=== PATIENT | male | born 1980 | race Caucasian/White ===

== ENCOUNTER 2022-04-21 14:58 | Emergency (ER) | payer OTHER ==
[2022-04-21] MEDS ORDERED: Ondansetron ODT 4 MG TAB ONE (15:08)
[2022-04-21] MEDS ORDERED: Morphine 4 MG/ML VIAL ONE (15:08)
[2022-04-21] MEDS ORDERED: Lidocaine 2% w/Epinephrine 1:200K 20 ML VIAL ONE (16:18)
[2022-04-21] MEDS ORDERED: Lidocaine 2% 20 ml MDV ONE (16:19)
[2022-04-21] MEDS ORDERED: Midazolam HCl 2 mg/2 ml Vial ONE (16:27)
[2022-04-21] MEDS ORDERED: Ketamine 50 MG/ML (10ML VIAL) ONE (16:28)
[2022-04-21] MEDS ORDERED: Ondansetron PF 4 MG/2 ML Vial ONE (16:28)
[2022-04-21] MEDS ORDERED: Ketorolac Tromethamine 30 MG/ML VIAL ONE (17:05)
[2022-04-21] MEDS ORDERED: Fentanyl 100 MCG/2 ML VIAL ONE (17:05)
== END 2022-04-21 18:45 | disposition home or self-care (01) ==
LOC: BURERS 14:58
DX: S42.252A Displaced fracture of greater tuberosity of left humerus, initial encounter for closed fracture (principal); W64.XXXA Exposure to other animate mechanical forces, initial encounter
CPT/HCPCS: 23650; 94760; 96372; 96374; 96375; J1885; J2250; J2270; J2405; J3010; Q0162